=== PATIENT | male | born 1975 | race Caucasian/White ===

== ENCOUNTER → 2021-09-18 | Day surgery (SDC) | payer BC ==
[~2021-09-18] MED LIST: ACARBOSE50 MG PO; BENICAR20 MG PO; FENOFIBRATE145 MG PO; FENTANYL CITRATE/PF 100MCG/2 ML INJ ONE; GLIPIZIDE ER5 MG PO; JANUVIA100 MG PO; LIPITOR10 MG PO; MIDAZOLAM HCL 2 MG/2 ML VIAL ONE; PROPOFOL IV EMULSION 10 MG/ML 20 ML VIAL ONE
[2021-09-18 10:40] VITALS: BP 100/72
[2021-09-18 11:15] LABS: INR 0.94; PROTHROMBIN TIME 13.3 seconds (11.9-14.5)
== END | disposition home or self-care (01) ==
LOC: OR 07:01 → EDSEX 08:30
PROVIDERS: ATTEND Internal Medicine Gastroenterology
DX: K64.8 Other hemorrhoids (principal); K63.5 Polyp of colon; K57.30 Diverticulosis of large intestine without perforation or abscess without bleeding; K62.89 Other specified diseases of anus and rectum; K21.9 Gastro-esophageal reflux disease without esophagitis; G47.33 Obstructive sleep apnea (adult) (pediatric); E11.9 Type 2 diabetes mellitus without complications; I10 Essential (primary) hypertension; E78.5 Hyperlipidemia, unspecified; Z88.0 Allergy status to penicillin; Z01.810 Encounter for preprocedural cardiovascular examination; Z01.812 Encounter for preprocedural laboratory examination; Z20.822 Contact with and (suspected) exposure to COVID-19; Z79.84 Long term (current) use of oral hypoglycemic drugs; Z79.899 Other long term (current) drug therapy; Z68.34 Body mass index [BMI] 34.0-34.9, adult; Z80.0 Family history of malignant neoplasm of digestive organs
CPT/HCPCS: 36415; 45380; 82948; 85610; 85730; 93005; J2250; J2704; J3010; U0002